=== PATIENT | female | born 1970 | race Caucasian/White ===

== ENCOUNTER 2016-11-22 19:22 | Emergency (ER) | payer BC, OTHER ==
[2016-11-22] MEDS ORDERED: HYDROCODONE/ACETAMINOPHEN 5-325 MG TABLET PO ONE (20:16)
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
[2016-11-22 21:30] VITALS: BP 113/80
== END 2016-11-22 22:39 | disposition home or self-care (01) ==
LOC: ER 19:22
DX: S39.012A Strain of muscle, fascia and tendon of lower back, initial encounter (principal); S40.021A Contusion of right upper arm, initial encounter; V49.40XA Driver injured in collision with unspecified motor vehicles in traffic accident, initial encounter; M25.521 Pain in right elbow; M25.531 Pain in right wrist; R41.0 Disorientation, unspecified; F17.200 Nicotine dependence, unspecified, uncomplicated
CPT/HCPCS: 70450; 99284

== ENCOUNTER → 2017-10-26 | Outpatient (CLI) | payer BC, OTHER ==
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
== END ==
LOC: RAD 18:44
PROVIDERS: ATTEND Nurse Practitioner Family
DX: R05 Cough (principal)
CPT/HCPCS: 71046